=== PATIENT | female | born 1965 | race Asian ===

== ENCOUNTER 2018-12-09 17:46 | Emergency (ER) | payer OTHER ==
[~2018-12-09] VITALS: Ht 157.5 cm; Wt 54.4 kg
[2018-12-09 17:51] VITALS: Ht 157.5 cm; Wt 54.4 kg
[2018-12-09 19:31] LABS: BASOPHIL % 0.7 % (0-2); PLATELET COUNT 207 x10^3mcL (130-400)
[2018-12-09 19:33] LABS: RED CELL DISTRIBUTION WIDTH 14.6 % (11.5-14.5)
[2018-12-09 19:49] LABS: CALCIUM 9.1 mg/dL (8.5-10.1); CARBON DIOXIDE 29.4 mmol/L (21-32); CHLORIDE SERUM 105 mmol/L (98-107); CREATININE SERUM 0.8 mg/dL (0.6-1.0); GFR1 > 60 mL/min; GLUCOSE SERUM 85 mg/dL (74-106); POTASSIUM SERUM 3.6 mmol/L (3.5-5.1); SODIUM SERUM 142 mmol/L (136-145)
[2018-12-09 19:53] LABS: ALBUMIN 3.7 g/dL (3.4-5.0); ALKALINE PHOSPHATASE 28 U/L (46-116); ALT/SGPT 25 U/L (14-59); AST/SGOT 18 U/L (15-37); BILIRUBIN TOTAL 0.4 mg/dL (0.20-1.00); TOTAL PROTEIN, SERUM 7.4 g/dL (6.4-8.2)
[2018-12-09 20:46] VITALS: BP 139/88
== END 2018-12-09 20:53 | disposition home or self-care (01) ==
LOC: ED 17:46
PROVIDERS: Emergency Medicine
DX: R07.89 Other chest pain (principal); R53.1 Weakness
CPT/HCPCS: 36415; 83880; Q0092